=== PATIENT | male | born 1970 | race Caucasian/White ===

== ENCOUNTER 2018-07-28 16:52 | Inpatient (IN) | payer OTHER ==
[2018-07-28] MEDS ORDERED: ONDANSETRON 4 MG/2 ML VIAL IVP STA (17:22)
[2018-07-28] MEDS ORDERED: SODIUM CHLORIDE 0.9% 2,000 ML IV STA (17:22)
[2018-07-28] MEDS ORDERED: MORPHINE SULFATE 2 MG/ML SYRINGE IVP STA (17:22)
[2018-07-28 17:55] LABS: Basophils % (A) 0 %; Eosinophils # (A) 0.1 k/uL (0-0.7); Eosinophils % (A) 1 %; HCT 52.3 % (39.0-53.0); HGB 17.7 gm/dL (13.0-17.5); Lymphocytes # (A) 1.6 k/uL (1.0-4.8); Lymphocytes % (A) 14 %; MCH 30.9 pg (25.0-35.0); MCHC 33.8 g/dL (31.0-37.0); MCV 91.2 fL (80.0-100.0); Mean Platelet Volume 6.9; Monocytes # (A) 0.7 k/uL (0-1.0); Monocytes % (A) 6 %; Neutrophils # (A) 8.8 k/uL (1.3-7.7); Neutrophils % (A) 77 %; Platelet Count 291 k/uL (150-450); RBC 5.74 m/uL (4.30-5.90); RDW 14.1 % (11.5-15.5); WBC 11.3 k/uL (3.8-10.6)
[2018-07-28 18:03] LABS: Sodium 138 mmol/L (137-145)
[2018-07-28 18:04] LABS: Partial Thromboplastin Time 26.3 sec (22.0-30.0); Prothrombin Time 9.9 sec (9.0-12.0)
[2018-07-28 18:05] LABS: ALT 53 U/L (21-72); AST 69 U/L (17-59); Alkaline Phosphatase 96 U/L (38-126); Amylase 121 U/L (30-110); Anion Gap 26 mmol/L; Blood Urea Nitrogen 61 mg/dL (9-20); Calcium 10.9 mg/dL (8.4-10.2); Carbon Dioxide 17 mmol/L (22-30); Chloride 95 mmol/L (98-107); Glucose 96 mg/dL (74-99); Lipase 202 U/L (23-300); Potassium 5.3 mmol/L (3.5-5.1)
[2018-07-28 18:12] LABS: Total Protein 10.8 g/dL (6.3-8.2)
[2018-07-28 18:19] LABS: Albumin >6.0 g/dL (3.5-5.0)
--- NOTE | 2018-07-28 18:49 | ED ---
Abdominal Pain HPI - General Chief Complaint: Abdominal Pain Stated Complaint: abd pain Time Seen by Provider: 07/28/18 17:04 Source: patient, RN notes reviewed Mode of arrival: ambulatory Limitations: no limitations - History of Present Illness Initial Comments: 47 show male presents emergency Department with chief complaint of right-sided abdominal pain. Patient states started last night around dinner time. Patient states pain persisted. He did admit that he worked all day symptoms worsen. Patient states that a history kidney stones but this feels different. He states his been very nauseated and he states he has had extreme nausea with vomiting. Denies any hematemesis or coffee-ground emesis. Patient's had no recent fever, chills, dysuria or hematuria. Patient states that his bowel movements have been normal. Patient's had no prior abdominal surgeries. - Related Data Home Medications Medication Instructions Recorded Confirmed Atorvastatin [Lipitor] 20 mg PO HS 07/28/18 07/28/18 Citalopram Hydrobromide [CeleXA] 10 mg PO DAILY 07/28/18 07/28/18 Allergies Allergy/AdvReac Type Severity Reaction Status Date / Time No Known Allergies Allergy Verified 07/28/18 17:13 Review of Systems ROS Statement: Those systems with pertinent positive or pertinent negative responses have been documented in the HPI. ROS Other: All systems not noted in ROS Statement are negative. Past Medical History Additional Past Medical History / Comment(s): kidney stones History of Any Multi-Drug Resistant Organisms: None Reported Past Surgical History: No Surgical Hx Reported Past Psychological History: No Psychological Hx Reported Smoking Status: Current every day smoker Past Alcohol Use History: Occasional Past Drug Use History: Marijuana General Exam Limitations: no limitations General appearance: alert, in no apparent distress Head exam: Present: atraumatic, normocephalic, normal inspection Eye exam: Present: normal appearance, PERRL, EOMI. Absent: scleral icterus, conjunctival injection, periorbital swelling Respiratory exam: Present: normal lung sounds bilaterally. Absent: respiratory distress, wheezes, rales, rhonchi, stridor Cardiovascular Exam: Present: regular rate, normal rhythm, normal heart sounds. Absent: systolic murmur, diastolic murmur, rubs, gallop, clicks GI/Abdominal exam: Present: soft, tenderness (Moderate right mid to right lower quadrant tenderness), normal bowel sounds. Absent: distended, guarding, rebound , rigid Back exam: Absent: CVA tenderness (R), CVA tenderness (L) Skin exam: Present: warm, dry, intact, normal color. Absent: rash Course Vital Signs 07/28/18 07/28/18 16:54 19:08 Temperature 98.3 F Pulse Rate 91 77 Respiratory 18 16 Rate Blood Pressure 138/43 144/80 O2 Sat by Pulse 100 98 Oximetry Medical Decision Making - Lab Data Result diagrams: 07/28/18 17:43 07/28/18 17:43 Lab Results 07/28/18 07/28/18 07/28/18 Range/Units 17:43 17:43 17:43 WBC 11.3 H (3.8-10.6) k/uL RBC 5.74 (4.30-5.90) m/uL Hgb 17.7 H (13.0-17.5) gm/dL Hct 52.3 (39.0-53.0) % MCV 91.2 (80.0-100.0) fL MCH 30.9 (25.0-35.0) pg MCHC 33.8 (31.0-37.0) g/dL RDW 14.1 (11.5-15.5) % Plt Count 291 (150-450) k/uL Neutrophils % 77 % Lymphocytes % 14 % Monocytes % 6 % Eosinophils % 1 % Basophils % 0 % Neutrophils # 8.8 H (1.3-7.7) k/uL Lymphocytes # 1.6 (1.0-4.8) k/uL Monocytes # 0.7 (0-1.0) k/uL Eosinophils # 0.1 (0-0.7) k/uL Basophils # 0.0 (0-0.2) k/uL PT (9.0-12.0) sec INR (<1.2) APTT (22.0-30.0) sec Sodium 138 (137-145) mmol/L Potassium 5.3 H (3.5-5.1) mmol/L Chloride 95 L (98-107) mmol/L Carbon Dioxide 17 L (22-30) mmol/L Anion Gap 26 mmol/L BUN 61 H (9-20) mg/dL Creatinine 5.66 H (0.66-1.25) mg/dL Est GFR (CKD-EPI)AfAm 13 (>60 ml/min/1.73 sqM) Est GFR (CKD-EPI)NonAf 11 (>60 ml/min/1.73 sqM) Glucose 96 (74-99) mg/dL Plasma Lactic Acid Mando 1.0 (0.7-2.0) mmol/L Calcium 10.9 H (8.4-10.2) mg/dL Total Bilirubin 1.0 (0.2-1.3) mg/dL AST 69 H (17-59) U/L ALT 53 (21-72) U/L Alkaline Phosphatase 96 (38-126) U/L Total Protein 10.8 H (6.3-8.2) g/dL Albumin >6.0 H (3.5-5.0) g/dL Amylase 121 H (30-110) U/L Lipase 202 (23-300) U/L Urine Color Urine Appearance (Clear) Urine pH (5.0-8.0) Ur Specific [place] (1.001-1.035) Urine Protein (Negative) Urine Glucose (UA) (Negative) Urine Ketones (Negative) Urine Blood (Negative) Urine Nitrite (Negative) Urine Bilirubin (Negative) Urine Urobilinogen (<2.0) mg/dL Ur Leukocyte Esterase (Negative) Urine RBC (0-5) /hpf Urine WBC (0-5) /hpf Hyaline Casts (0-2) /lpf Urine Mucus (None) /hpf 07/28/18 07/28/18 Range/Units 17:43 19:10 WBC (3.8-10.6) k/uL RBC (4.30-5.90) m/uL Hgb (13.0-17.5) gm/dL Hct (39.0-53.0) % MCV (80.0-100.0) fL MCH (25.0-35.0) pg MCHC (31.0-37.0) g/dL RDW (11.5-15.5) % Plt Count (150-450) k/uL Neutrophils % % Lymphocytes % % Monocytes % % Eosinophils % % Basophils % % Neutrophils # (1.3-7.7) k/uL Lymphocytes # (1.0-4.8) k/uL Monocytes # (0-1.0) k/uL Eosinophils # (0-0.7) k/uL Basophils # (0-0.2) k/uL PT 9.9 (9.0-12.0) sec INR 1.0 (<1.2) APTT 26.3 (22.0-30.0) sec Sodium (137-145) mmol/L Potassium (3.5-5.1) mmol/L Chloride (98-107) mmol/L Carbon Dioxide (22-30) mmol/L Anion Gap mmol/L BUN (9-20) mg/dL Creatinine (0.66-1.25) mg/dL Est GFR (CKD-EPI)AfAm (>60 ml/min/1.73 sqM) Est GFR (CKD-EPI)NonAf (>60 ml/min/1.73 sqM) Glucose (74-99) mg/dL Plasma Lactic Acid Mando (0.7-2.0) mmol/L Calcium (8.4-10.2) mg/dL Total Bilirubin (0.2-1.3) mg/dL AST (17-59) U/L ALT (21-72) U/L Alkaline Phosphatase (38-126) U/L Total Protein (6.3-8.2) g/dL Albumin (3.5-5.0) g/dL Amylase (30-110) U/L Lipase (23-300) U/L Urine Color Yellow Urine Appearance Cloudy (Clear) Urine pH 6.0 (5.0-8.0) Ur Specific [place] 1.029 (1.001-1.035) Urine Protein 1+ H (Negative) Urine Glucose (UA) Negative (Negative) Urine Ketones 1+ H (Negative) Urine Blood Moderate H (Negative) Urine Nitrite Negative (Negative) Urine Bilirubin Negative (Negative) Urine Urobilinogen <2.0 (<2.0) mg/dL Ur Leukocyte Esterase Trace H (Negative) Urine RBC 9 H (0-5) /hpf Urine WBC 14 H (0-5) /hpf Hyaline Casts 55 H (0-2) /lpf Urine Mucus Occasional H (None) /hpf Disposition Clinical Impression: Renal failure, Abdominal pain, Nausea & vomiting Disposition: ADMITTED IP TO THIS [facility] Condition: Fair Referrals: John Katz MD [Primary Care Provider] - 1-2 days
[2018-07-28 19:19] LABS: Appearance,Urine Cloudy (Clear); Bilirubin,Urine Negative (Negative); Blood,Urine Moderate (Negative); Color,Urine Yellow; Glucose,Urine (UA) Negative (Negative); Hyaline Casts,Urine 55 /lpf (0-2); Ketones,Urine 1+ (Negative); Leukocyte Esterase,Urine Trace (Negative); Mucus,Urine Occasional /hpf; Nitrite,Urine Negative (Negative); Protein,Urine 1+ (Negative); RBC,Urine 9 /hpf (0-5); Specific Gravity,Urine 1.029 (1.001-1.035); Urobilinogen,Urine <2.0 mg/dL (<2.0); WBC,Urine 14 /hpf (0-5)
--- NOTE | 2018-07-28 19:27 | CT ---
EXAMINATION TYPE: CT abdomen pelvis w con DATE OF EXAM: 07/28/2018 COMPARISON: None. HISTORY: Abdominal pain CT DLP: 360.8 mGycm Automated exposure control for dose reduction was used. TECHNIQUE: Helical acquisition of images was performed from the lung bases through the pelvis. CONTRAST: Performed without Oral Contrast and with IV Contrast, patient injected with 100 mL of Isovu e 300. FINDINGS: LUNG BASES: No significant abnormality is appreciated. LIVER/GB: No significant abnormality is appreciated. PANCREAS: No significant abnormality is seen. SPLEEN: No significant abnormality is seen. ADRENALS: No significant abnormality is seen. KIDNEYS: No significant abnormality is seen. FREE AIR: No free air is visualized. RETROPERITONEAL ADENOPATHY: None visualized REPRODUCTIVE ORGANS: No significant abnormality is seen URINARY BLADDER: No significant abnormality is seen. PELVIC ADENOPATHY: None visualized. OSSEOUS STRUCTURES: No significant abnormality is seen. BOWEL: No significant abnormality is seen. The appendix has normal appearance, as does the terminal ileum and cecum. Vasculature: No acute findings. IMPRESSION: NO ACUTE PROCESS.
[2018-07-28] MEDS ORDERED: ONDANSETRON 4 MG/2 ML VIAL IVP PRN (19:34)
[2018-07-28] MEDS ORDERED: ACETAMINOPHEN TAB 325 MG TAB PO PRN (19:34)
[2018-07-28] MEDS: SODIUM CHLORIDE 0.9% 1,000 ML IV SCH (23:04)
[2018-07-28 23:25] VITALS: BMI 25.1
[2018-07-29] MEDS: PANTOPRAZOLE 40 MG/10 ML VIAL IVP SCH ×2 (11:49→20:50)
[2018-07-29] MEDS: HEPARIN SODIUM,PORCINE 5,000 UNIT/ML 1 ML VIAL SQ SCH ×2 (11:49→16:38)
[2018-07-29] MEDS: SODIUM CHLORIDE 0.9% 1,000 ML IV SCH (11:52)
--- NOTE | 2018-07-29 11:52 | P.HPIM ---
<Carrie Melchor E - Last Filed: 07/29/18 15:07> History of Present Illness H&P Date: 07/29/18 Chief Complaint: Abdominal pain This is a 47-year-old male patient being seen examined and evaluated today on rounds covering for Dr. John Marin. The patient came into the emergency room complaining of right-sided abdominal pain that had been ongoing for the last 2 days. He states he had also had nausea and vomiting of bile like substances. Denies hematemesis or coffee-ground emesis. He was unable to keep anything down. He denies any fevers or chills. He denies any diarrhea or constipation. He has had a past history of kidney stones and hyperlipidemia and depression. He does occasional drink alcohol maybe 1-2 beers per week. He is a current every day smoker and smokes approximately one pack per day for 25 years. In the ER did show a WBC of 11.3. He did have an hemoglobin of 17.7, potassium of 5.3, chloride of 95, CO2 17, BUN of 61 and a creatinine of 5.66. Lactic acid was 1, amylase was 121, he did have a urinalysis as well which was positive for protein and ketones trace leukocytes and hyaline casts. He also had a CT of the abdomen which was negative for any acute process. Nephrology is on consult. Upon examination the patient's resting up in bed on room air. He is somewhat diffusely tender to the right lower quadrant upon palpation. Nausea and vomiting has subsided. He has been able to eat breakfast today. Afebrile no further complaints. Review of Systems 14 point review of systems was completed and is negative unless noted above in HPI Past Medical History Past Medical History: Hyperlipidemia Additional Past Medical History / Comment(s): kidney stones History of Any Multi-Drug Resistant Organisms: None Reported Past Surgical History: No Surgical Hx Reported Past Psychological History: Depression Smoking Status: Current every day smoker Past Alcohol Use History: Occasional Past Drug Use History: Marijuana Medications and Allergies Home Medications Medication Instructions Recorded Confirmed Type Atorvastatin [Lipitor] 20 mg PO HS 07/28/18 07/28/18 History Citalopram Hydrobromide [CeleXA] 10 mg PO DAILY 07/28/18 07/28/18 History Allergies Allergy/AdvReac Type Severity Reaction Status Date / Time No Known Allergies Allergy Verified 07/28/18 17:13 Physical Exam Vitals: Vital Signs Temp Pulse Pulse Resp BP BP Pulse Ox 07/29/18 08:00 69 18 07/29/18 06:16 98.2 F 69 18 107/71 97 07/28/18 22:59 98.5 F 53 L 18 126/84 96 07/28/18 19:08 77 16 144/80 98 07/28/18 16:54 98.3 F 91 18 138/43 100 Intake and Output 07/28/18 07/29/18 07/29/18 22:59 06:59 14:59 Other: Voiding Method Toilet Toilet # Voids 1 1 1 Weight 70.76 kg 70.7 kg GENERAL EXAM: Alert, comfortable in no apparent distress. HEAD: Normocephalic. EYES: Normal reaction of pupils, equal size. NOSE: Clear with pink turbinates. THROAT: No erythema or exudates. NECK: No masses, no JVD. CHEST: No chest wall deformity. LUNGS: Equal air entry with no crackles, wheeze, rhonchi or dullness. CVS: S1 and S2 normal with no audible mumurs, regular rhythm. ABDOMEN: No hepatosplenomegaly, normal bowel sounds, slightly tender to palpitation in the right lower quadrant EXTREMITIES: No edema noted, pedal pulses palpable. CENTRAL NERVOUS SYSTEM: No focal deficits, tone is normal in all 4 extremities. Results CBC & Chem 7: 07/28/18 17:43 07/28/18 17:43 Labs: Abnormal Lab Results - Last 24 Hours (Table) 07/28/18 07/28/18 07/28/18 Range/Units 17:43 17:43 19:10 WBC 11.3 H (3.8-10.6) k/uL Hgb 17.7 H (13.0-17.5) gm/dL Neutrophils # 8.8 H (1.3-7.7) k/uL Potassium 5.3 H (3.5-5.1) mmol/L Chloride 95 L (98-107) mmol/L Carbon Dioxide 17 L (22-30) mmol/L BUN 61 H (9-20) mg/dL Creatinine 5.66 H (0.66-1.25) mg/dL Calcium 10.9 H (8.4-10.2) mg/dL AST 69 H (17-59) U/L Total Protein 10.8 H (6.3-8.2) g/dL Albumin >6.0 H (3.5-5.0) g/dL Amylase 121 H (30-110) U/L Urine Protein 1+ H (Negative) Urine Ketones 1+ H (Negative) Urine Blood Moderate H (Negative) Ur Leukocyte Esterase Trace H (Negative) Urine RBC 9 H (0-5) /hpf Urine WBC 14 H (0-5) /hpf Hyaline Casts 55 H (0-2) /lpf Urine Mucus Occasional H (None) /hpf CT scan - abdomen: report reviewed, image reviewed Thrombosis Risk Factor Assmnt - DVT/VTE Prophylaxis DVT/VTE Prophylaxis: Pharmacologic Prophylaxis ordered - Choose All That Apply Any of the Below Risk Factors Present?: No Assessment and Plan Assessment: Assessment Acute renal failure Hyperkalemia Abdominal pain Nausea and vomiting Polycythemia History of kidney stones Nicotine dependence History of depression History of hyperlipidemia Plan Medications have been reviewed and will be continued as ordered. IV fluids as ordered Strict I and O Insert araujo cath Nephrology on consult appreciate recommendations Continue to monitor labs Continue with pulmonary hygiene, coughing and deep breathing exercises, and supportive care. GI and DVT prophylaxis. Protonix and heparin as well as early mobility We will continue to monitor labs/results and adjust treatment as necessary. Further recommendations pending. I, the signing physician performed an examination of the patient, discussed and directed their management with the nurse practitioner. I have reviewed the nurse practitioner's note and agree with the documented findings, orders and plan of care. Of note we are covering for Dr. John Katz today. <Mimi Petit - Last Filed: 07/29/18 15:18> Physical Exam Osteopathic Statement: *. No significant issues noted on an osteopathic structural exam other than those noted in the History and Physical/Consult. Vitals: Vital Signs Temp Pulse Pulse Resp BP BP Pulse Ox 07/29/18 08:00 69 18 07/29/18 06:16 98.2 F 69 18 107/71 97 07/28/18 22:59 98.5 F 53 L 18 126/84 96 07/28/18 19:08 77 16 144/80 98 07/28/18 16:54 98.3 F 91 18 138/43 100 Intake and Output 07/29/18 07/29/18 07/29/18 06:59 14:59 22:59 Other: Voiding Method Toilet # Voids 1 1 Weight 70.7 kg Results CBC & Chem 7: 07/28/18 17:43 07/28/18 17:43 Labs: Abnormal Lab Results - Last 24 Hours (Table) 07/28/18 07/28/18 07/28/18 Range/Units 17:43 17:43 19:10 WBC 11.3 H (3.8-10.6) k/uL Hgb 17.7 H (13.0-17.5) gm/dL Neutrophils # 8.8 H (1.3-7.7) k/uL Potassium 5.3 H (3.5-5.1) mmol/L Chloride 95 L (98-107) mmol/L Carbon Dioxide 17 L (22-30) mmol/L BUN 61 H (9-20) mg/dL Creatinine 5.66 H (0.66-1.25) mg/dL Calcium 10.9 H (8.4-10.2) mg/dL AST 69 H (17-59) U/L Total Protein 10.8 H (6.3-8.2) g/dL Albumin >6.0 H (3.5-5.0) g/dL Amylase 121 H (30-110) U/L Urine Protein 1+ H (Negative) Urine Ketones 1+ H (Negative) Urine Blood Moderate H (Negative) Ur Leukocyte Esterase Trace H (Negative) Urine RBC 9 H (0-5) /hpf Urine WBC 14 H (0-5) /hpf Hyaline Casts 55 H (0-2) /lpf Urine Mucus Occasional H (None) /hpf Assessment and Plan Assessment: Patient seen and examined. Patient with ARF and dehydration. Continue IVF hydration. Araujo for strict I/O. Renal ultrasound. Encourage enteral nutrition. Send urine for culture. AGMA. Repeat labs now. ~Mimi Petit DO
[2018-07-29] MEDS: CITALOPRAM HYDROBROMIDE 10 MG TAB PO SCH (13:35)
[2018-07-29 18:08] LABS: Basophils % (A) 1 %; Eosinophils # (A) 0.1 k/uL (0-0.7); Eosinophils % (A) 1 %; HCT 39.4 % (39.0-53.0); Lymphocytes # (A) 1.6 k/uL (1.0-4.8); Lymphocytes % (A) 32 %; MCH 31.3 pg (25.0-35.0); MCHC 33.7 g/dL (31.0-37.0); MCV 92.8 fL (80.0-100.0); Mean Platelet Volume 7.4; Monocytes # (A) 0.5 k/uL (0-1.0); Monocytes % (A) 10 %; Neutrophils # (A) 2.7 k/uL (1.3-7.7); Neutrophils % (A) 54 %; Platelet Count 191 k/uL (150-450); RBC 4.24 m/uL (4.30-5.90); RDW 14.3 % (11.5-15.5); WBC 5.1 k/uL (3.8-10.6)
[2018-07-29 18:09] LABS: HGB 13.3 gm/dL (13.0-17.5)
[2018-07-29 18:16] LABS: Albumin 3.8 g/dL (3.5-5.0); Calcium 8.9 mg/dL (8.4-10.2); Magnesium 2.4 mg/dL (1.6-2.3); Potassium 5.2 mmol/L (3.5-5.1); Total Bilirubin 0.7 mg/dL (0.2-1.3); Total Protein 6.7 g/dL (6.3-8.2)
[2018-07-29 19:54] LABS: Appearance,Urine Clear (Clear); Bilirubin,Urine Negative (Negative); Blood,Urine Trace (Negative); Color,Urine Light Yellow; Glucose,Urine (UA) 1+ (Negative); Ketones,Urine Negative (Negative); Leukocyte Esterase,Urine Negative (Negative); Mucus,Urine Rare /hpf; Nitrite,Urine Negative (Negative); PH, Urine 5.5 (5.0-8.0); Protein,Urine Negative (Negative); RBC,Urine 1 /hpf (0-5); Specific Gravity,Urine 1.013 (1.001-1.035); Urobilinogen,Urine <2.0 mg/dL (<2.0); WBC,Urine 1 /hpf (0-5)
--- NOTE | 2018-07-29 20:01 | CONS ---
CONSULTATION REASON FOR CONSULT: Renal failure. HISTORY OF PRESENT ILLNESS: Patient is a 47-year-old male who was admitted to the hospital with complaints of abdominal pain which had been going on for about 2 days. Patient also had nausea, vomiting and diarrhea prior to admission. He denied any fevers or chills. No chest pains, shortness of breath or cough. Patient does smoke one pack per day. He was noted to have a serum creatinine of 5.6 mg/dL. Patient did admit to use of nonsteroidal anti-inflammatory agents in the form of Motrin. I do see a systolic blood pressure of 107 mmHg. At home patient was not on any JUN inhibitors. Patient denies any prior history of kidney diseases. Previous creatinine is not available for comparison. Patient is currently voiding. He is maintained on IV fluids. PAST MEDICAL HISTORY: Significant for: 1. Hyperlipidemia. 2. History of kidney stones. Last stone was about 2 to 3 years ago. PAST SURGICAL HISTORY: None. SOCIAL HISTORY: Positive for smoking. Occasional use of marijuana. No alcohol abuse. No other drug abuse. MEDICATIONS: Medications at home included Lipitor, Celexa. ALLERGIES: NONE. PHYSICAL EXAMINATION: Patient is comfortable, awake. He is alert and oriented x3, not in any acute distress. Blood pressure this morning was 107/71, heart rate 69 per minute. Patient is afebrile. EXAMINATION OF THE HEART: S1, S2. EXAMINATION OF LUNGS: Bilateral breath sounds are heard. ABDOMEN: Soft, non-tender. Examination of lower extremities shows no evidence of edema. 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 LABS: Labs reveal sodium of 138, potassium 5.3 from yesterday. BUN 61, serum creatinine 5.6. Later on today, the serum creatinine came back at 1.16. Sodium 139, potassium 5.2. Hemoglobin was 13.3. UA showed 1+ protein, WBCs 14, hyaline casts 55, blood moderate was seen. ASSESSMENT: 1. Acute kidney injury secondary to intravascular volume depletion, currently significantly improved with IV hydration. I will continue with IV fluids. UA does show blood and protein. This will need to be followed down the road once patient is adequately hydrated. 2. Mild hyperkalemia associated with acute kidney injury and metabolic acidosis. Expect improvement with improving renal function. 3. Mildly elevated lipase level. Will repeat. PLAN: Continue IV fluids. Repeat UA in 1 to 2 days. Patient has been advised to avoid the use of NSAIDs. We may continue with the Protonix for now. Thank you for this consultation. We will continue to follow the patient with you during his hospitalization. LUCERO / KIEL: [id number] /
[2018-07-29] MEDS ORDERED: ATORVASTATIN 20 MG TAB PO SCH (21:00)
[2018-07-29 23:32] VITALS: PULSE 71
[2018-07-30] MEDS: HEPARIN SODIUM,PORCINE 5,000 UNIT/ML 1 ML VIAL SQ SCH ×2 (00:09→07:48)
--- NOTE | 2018-07-30 00:39 | US ---
EXAMINATION TYPE: US kidneys/renal and bladder DATE OF EXAM: 07/29/2018 COMPARISON: NONE CLINICAL HISTORY: acute kidney injury, pain. Acute renal failure. EXAM MEASUREMENTS: Right Kidney: 10.3 x 4.7 x 4.0 cm Left Kidney: 10.8 x 5.1 x 5.4 cm Right Kidney: No hydronephrosis or masses seen Left Kidney: Hypoechoic area seen adjacent to lower pole measuring 1.6 x 1.0 x 1.6cm. Bladder: wnl Bilateral Jets seen: Right side only There is no evidence for hydronephrosis at this point in time. No nephrolithiasis is seen. The urina ry bladder is anechoic. Right ureteral jet is seen. No renal atrophy seen. IMPRESSION: No evidence of solid renal mass or obstruction. Hypoechoic finding at the lower pole left kidney of uncertain significance. This does not correspond to any abnormality in the area on the CT scan yester day. This is of doubtful significance.
[2018-07-30] MEDS: SODIUM CHLORIDE 0.9% 1,000 ML IV SCH (03:30)
[2018-07-30 06:20] VITALS: BP 122/73; RESP 20; TEMP 96.4
[2018-07-30] MEDS: PANTOPRAZOLE 40 MG/10 ML VIAL IVP SCH (07:49)
[2018-07-30] MEDS: CITALOPRAM HYDROBROMIDE 10 MG TAB PO SCH (07:49)
[2018-07-30 09:53] LABS: Basophils % (A) 0 %; Eosinophils # (A) 0.1 k/uL (0-0.7); Eosinophils % (A) 1 %; HCT 38.5 % (39.0-53.0); HGB 12.6 gm/dL (13.0-17.5); Lymphocytes # (A) 1.2 k/uL (1.0-4.8); Lymphocytes % (A) 24 %; MCH 30.7 pg (25.0-35.0); MCHC 32.6 g/dL (31.0-37.0); MCV 94.1 fL (80.0-100.0); Mean Platelet Volume 7.1; Monocytes # (A) 0.4 k/uL (0-1.0); Monocytes % (A) 8 %; Neutrophils # (A) 3.4 k/uL (1.3-7.7); Neutrophils % (A) 65 %; Platelet Count 192 k/uL (150-450); RBC 4.09 m/uL (4.30-5.90); RDW 14.1 % (11.5-15.5); WBC 5.3 k/uL (3.8-10.6)
[2018-07-30 10:04] LABS: ALT 35 U/L (21-72); AST 36 U/L (17-59); Albumin 3.6 g/dL (3.5-5.0); Alkaline Phosphatase 53 U/L (38-126); Anion Gap 5 mmol/L; Blood Urea Nitrogen 22 mg/dL (9-20); Calcium 9.3 mg/dL (8.4-10.2); Carbon Dioxide 23 mmol/L (22-30); Chloride 113 mmol/L (98-107); Glucose 71 mg/dL (74-99); Magnesium 1.8 mg/dL (1.6-2.3); Potassium 5.3 mmol/L (3.5-5.1); Sodium 141 mmol/L (137-145); Total Bilirubin 0.9 mg/dL (0.2-1.3); Total Protein 6.4 g/dL (6.3-8.2)
--- NOTE | 2018-07-30 10:20 | P.DS ---
Providers Date of admission: 07/28/18 19:33 Expected date of discharge: 07/30/18 Attending physician: John Katz Consults: 07/28/18 19:34 Consult Physician Stat Consulting Provider: Halima Robert Consult Reason/Comments: Renal failure Do you want consulting provider notified?: Yes Primary care physician: [facility] Course: HPI: This is a 47-year-old male patient being seen examined and evaluated today on rounds covering for Dr. John Marin. The patient came into the emergency room complaining of right-sided abdominal pain that had been ongoing for the last 2 days. He states he had also had nausea and vomiting of bile like substances. Denies hematemesis or coffee-ground emesis. He was unable to keep anything down. He denies any fevers or chills. He denies any diarrhea or constipation. He has had a past history of kidney stones and hyperlipidemia and depression. He does occasional drink alcohol maybe 1-2 beers per week. He is a current every day smoker and smokes approximately one pack per day for 25 years. In the ER did show a WBC of 11.3. He did have an hemoglobin of 17.7, potassium of 5.3, chloride of 95, CO2 17, BUN of 61 and a creatinine of 5.66. Lactic acid was 1, amylase was 121, he did have a urinalysis as well which was positive for protein and ketones trace leukocytes and hyaline casts. He also had a CT of the abdomen which was negative for any acute process. Nephrology is on consult. Upon examination the patient's resting up in bed on room air. He is somewhat diffusely tender to the right lower quadrant upon palpation. Nausea and vomiting has subsided. He has been able to eat breakfast today. Afebrile no further complaints. 07/30/18- patient seen and examined on rounds. He is resting up in bed and has no complaints. Nausea and vomiting has subsided completely. He has no further abdominal pain. His labs were reviewed he did have his BUN come down to 22, creatinine improved to 0.78. Repeat urine culture was negative. Ultrasound of the kidneys were negative. He has been voiding without any issues. Has had good urine output. He is hemodynamically stable and will follow-up outpatient post discharge. Assessment: Assessment Acute renal failure Hyperkalemia Abdominal pain Nausea and vomiting Polycythemia History of kidney stones Nicotine dependence History of depression History of hyperlipidemia Plan Patient is cleared for discharge and will follow-up in the outpatient setting. I, the signing physician performed an examination of the patient, discussed and directed their management with the nurse practitioner. I have reviewed the nurse practitioner's note and agree with the documented findings, orders and plan of care. Of note we are covering for Dr. John Katz today. Pertinent Studies: US of Kinde[place]/ ABD and bladder Abd/Pelvis CT Patient Condition at Discharge: Fair Plan - Discharge Summary New Discharge Prescriptions: Continue Citalopram Hydrobromide [CeleXA] 10 mg PO DAILY Atorvastatin [Lipitor] 20 mg PO HS Discharge Medication List Atorvastatin [Lipitor] 20 mg PO HS 07/28/18 [History] Citalopram Hydrobromide [CeleXA] 10 mg PO DAILY 07/28/18 [History] Follow up Appointment(s)/Referral(s): John Katz MD [Primary Care Provider] - 1 Week (Repeat urine specimen at dr visit. ) Patient Instructions/Handouts: Acute Kidney Injury (DC) Activity/Diet/Wound Care/Special Instructions: Regular diet Activity as tolerated. No smoking, cessation information provided. NO NSAIDS (non-steroidal antiinflammatory drugs such as Motrin) Discharge Disposition: HOME SELF-CARE
[2018-07-30] MEDS ORDERED: PANTOPRAZOLE 40 MG TABLET PO SCH (17:30)
--- NOTE | 2018-07-30 21:56 | PN ---
PROGRESS NOTE The patient is seen for followup for acute kidney injury. Renal function has improved significantly with creatinine down to 0.78 mg/dL from 5.6 on initial admission. The patient was volume depleted. He is maintained on IV fluids. Serum potassium staying slightly elevated. The patient is not on any JUN inhibitors or nonsteroidal anti- inflammatory agents. He wants to go home today. PHYSICAL EXAMINATION: Blood pressure 122/73, heart rate 71 per minute. He is afebrile. Examination of the heart: S1, S2. Examination of the lungs: Bilateral breath sounds are heard. Abdomen is soft, nontender. Examination lower extremities shows no evidence of edema. 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 ASSESSMENT: 1. Acute kidney injury, prerenal, currently significantly improved. 2. Mild hyperkalemia. The patient is advised to avoid constipation. We need to monitor labs as outpatient. He is currently not on any nonsteroidal anti- inflammatory agents or JUN inhibitors and this will need to be monitored as out patient. 3. Intravascular volume depletion, status post replacement. 4. Hypercalcemia on initial admission associated with acute kidney injury, currently resolved. PLAN: Patient can be discharged. Follow up as outpatient. Will repeat labs as outpatient to monitor potassium levels. MMODL / IJN: [id number] /
== END 2018-07-30 10:57 | disposition home or self-care (01) | DRG 683 ==
LOC: EC 16:52 → 4MS4W 19:33
PROVIDERS: ADMIT Family Medicine; ATTEND Family Medicine
DX: N17.9 Acute kidney failure, unspecified (principal); E87.2 Acidosis; D75.1 Secondary polycythemia; E78.5 Hyperlipidemia, unspecified; E83.52 Hypercalcemia; E86.0 Dehydration; E87.5 Hyperkalemia; Z71.6 Tobacco abuse counseling; F17.210 Nicotine dependence, cigarettes, uncomplicated; F32.9 Major depressive disorder, single episode, unspecified; Z87.442 Personal history of urinary calculi; Z79.3 Long term (current) use of hormonal contraceptives
CPT/HCPCS: 36415; 74177; 76770; 80053; 81001; 82150; 83605; 83690; 83735; 85025; 85610; 85730; 87086; 96361; 96374; 96375; 99285

== ENCOUNTER → 2025-01-17 | Outpatient (CLI) | payer OTHER ==
--- NOTE | 2025-01-17 07:38 | CT ---
EXAMINATION TYPE: CT chest w con DATE OF EXAM: 01/17/2025 COMPARISON: NONE CLINICAL INDICATION: Male, 54 years old with history of R22.2 Chest mass,lump, CHEST MASS TECHNIQUE: CT scan of the thorax is performed following with IV Contrast, patient injected with 100 ml mL of Isovue 300. CT DLP: 258.8 mGycm. Automated Exposure Control for Dose Reduction was Utilized. FINDINGS: LUNGS: The lungs are grossly clear, there is no concerning parenchymal mass or focal consolidation id entified. There is no pleural effusion or pneumothorax seen. The tracheobronchial tree is patent. HEART: Size within normal limits. No significant coronary artery calcifications. MEDIASTINUM: There are no greater than 1 cm hilar or mediastinal lymph nodes. No pericardial effusi on is seen. OTHER: Bilateral small nonobstructing renal calculi are seen. IMPRESSION: No suspicious mass or adenopathy. No acute pulmonary process. [facility] Monique Oh, , 01/17/2025 7:35 AM
== END | disposition home or self-care (01) ==
LOC: RADCTMAIN 07:05
PROVIDERS: ATTEND Family Medicine
DX: R22.2 Localized swelling, mass and lump, trunk (principal)
CPT/HCPCS: 71260; Q9967

== ENCOUNTER → 2025-03-28 | Outpatient (CLI) | payer OTHER ==
--- NOTE | 2025-03-28 07:14 | XR ---
EXAMINATION TYPE: XR lumbosacral spine min 4V DATE OF EXAM: 03/28/2025 7:00 AM COMPARISON: None. CLINICAL INDICATION: Male, 54 years old with history of DDD LUMBAR, pain TECHNIQUE: 5 view(s) obtained. FINDINGS: There are 5 Lumbar-type vertebral bodies. Pedicles are intact. Mild facet degenerative change is pres ent. No spondylolytic defects are evident. Vertebral body alignment is preserved. Disc heights are pr eserved. Vertebral body heights are preserved. Follow-up MRI can be performed as clinically indicated IMPRESSION: 1. Minimal spondylosis. [facility], , 03/28/2025 7:12 AM
== END | disposition home or self-care (01) ==
LOC: RADXRMAIN 06:37
PROVIDERS: ATTEND Family Medicine
DX: M51.369 Other intervertebral disc degeneration, lumbar region without mention of lumbar back pain or lower extremity pain (principal); M47.816 Spondylosis without myelopathy or radiculopathy, lumbar region
CPT/HCPCS: 72110